=== PATIENT | male | born 1960 | race Caucasian/White ===

== ENCOUNTER → 2017-11-05 | Outpatient (CLI) | payer BC ==
--- NOTE | 2017-11-05 16:22 | XR ---
Cervical spine HISTORY: Neck pain and numbness in right arm 5 views of the cervical spine There is no significant foraminal encroachment on oblique views. Cervical vertebral bodies show prese rved height, alignment, and bone mineralization. Disc spaces and prevertebral soft tissues are normal . Question thoracic scoliosis. IMPRESSION: Normal cervical spine.
== END ==
LOC: RADXRYALE 15:47
PROVIDERS: ATTEND Internal Medicine
DX: M54.2 Cervicalgia (principal)
CPT/HCPCS: 72050

== ENCOUNTER 2021-01-18 09:11 | Day surgery (SDC) | payer BC ==
[2021-01-17 09:57] VITALS: BMI 25.7
[2021-01-18 09:49] VITALS: RESP 18; TEMP 97.8
[2021-01-18] MEDS ORDERED: LACTATED RINGERS 1,000 ML IV ONE ×2 (10:05)
[2021-01-18] MEDS ORDERED: LIDOCAINE 1% INJ 10MG/ML (20 ML MDV) ONE (10:36)
[2021-01-18] MEDS ORDERED: PROPOFOL 10 MG/ML 20 ML VIAL IV ONE (10:36)
--- NOTE | 2021-01-18 10:51 | P.PCN ---
Date of Procedure: 01/18/21 Procedure(s) Performed: BRIEF HISTORY: Patient is a 60-year-old pleasant male scheduled for an elective colonoscopy as a part of screening for colorectal neoplasia. His father was diagnosed with colon cancer at age 58. PROCEDURE PERFORMED: Colonoscopy. PREOPERATIVE DIAGNOSIS: Screening for colon cancer. IV sedation per Anesthesia. PROCEDURE: After informed consent was obtained, the patient, was brought into the endoscopy unit. IV sedation was administered by Anesthesia under continuous monitoring. Digital rectal examination was normal. Initially the Olympus CF-160 flexible video colonoscope was then inserted in the rectum, gradually advanced into the cecum without any difficulty. Careful examination was performed as the scope was gradually being withdrawn. Ileocecal valve and the appendiceal orifice were visualized and appeared normal. Prep was excellent. Mucosa of the cecum, ascending colon, transverse colon, descending colon, sigmoid colon, and rectum appeared normal. Scattered sigmoid diverticulosis. Retroflexion was performed in the rectum and no lesions were seen. The patient tolerated the procedure well. IMPRESSION: Normal-appearing colon from rectum to cecum no evidence of colorectal neoplasia Scattered sigmoid diverticulosis. RECOMMENDATIONS: Findings of this examination were discussed with the patient well as his family. He was advised to have a repeat screening colonoscopy in 5 years from now because of the family history of colon cancer.
[2021-01-18 11:15] VITALS: BP 134/89; PULSE 57
== END 2021-01-18 11:22 | disposition home or self-care (01) ==
LOC: ORWHC2ENDO 09:11
PROVIDERS: ATTEND Internal Medicine Gastroenterology
DX: Z12.11 Encounter for screening for malignant neoplasm of colon (principal); K57.30 Diverticulosis of large intestine without perforation or abscess without bleeding; Z80.0 Family history of malignant neoplasm of digestive organs; Z79.82 Long term (current) use of aspirin; Z79.899 Other long term (current) drug therapy; E78.5 Hyperlipidemia, unspecified
CPT/HCPCS: J2001; J2704; G0105; 45378

== ENCOUNTER → 2023-02-12 | Outpatient (CLI) | payer BC ==
--- NOTE | 2023-02-12 21:25 | US ---
EXAMINATION TYPE: US mass soft tissue chest/back DATE OF EXAM: 02/12/2023 COMPARISON: NONE CLINICAL INDICATION: Male, 62 years old with history of D17.1 BENIGN LIPOMATOUS NEOPLASM OF SKIN, SUB CU OF; Pt states palpable lump left lateral mid back, left flank area FINDINGS/IMPRESSION: Multiple grayscale and color Doppler ultrasound images of the left lateral back \Flank were obtained with additional comparison images of the right. There is an isoechoic area within the left lateral mid/flank which blends in with the surrounding tis shama measuring 3.5 x 0.6 x 4.0 centimeters. No internal color flow identified. This is most consistent with a lipoma.
== END | disposition home or self-care (01) ==
LOC: RADUSWWP 15:29
PROVIDERS: ATTEND Internal Medicine
DX: D17.1 Benign lipomatous neoplasm of skin and subcutaneous tissue of trunk (principal); R22.2 Localized swelling, mass and lump, trunk